=== PATIENT | male | born 1970 | race Caucasian/White ===

== ENCOUNTER 2020-02-27 13:14 | Emergency (ER) | payer OTHER ==
[~2020-02-27] VITALS: Ht 182.9 cm; Wt 83.9 kg
[2020-02-27] MEDS ORDERED: LISINOPRIL20 MG PO (13:20)
[2020-02-27] MEDS ORDERED: FLEXERIL PO (14:12)
[2020-02-27] MEDS ORDERED: NORCO 5-325 TA1 EAC2 PO (14:12)
[2020-02-27 15:22] VITALS: BP 148/92
== END 2020-02-27 15:22 | disposition home or self-care (01) ==
LOC: M.ERS 13:14
DX: S00.83XA Contusion of other part of head, initial encounter (principal); I10 Essential (primary) hypertension; V69.49XA Driver of heavy transport vehicle injured in collision with other motor vehicles in traffic accident, initial encounter; Y93.89 Activity, other specified; Y92.89 Other specified places as the place of occurrence of the external cause; Y99.8 Other external cause status